=== PATIENT | female | born 1970 | race Caucasian/White ===

== ENCOUNTER 2016-11-24 08:09 | Emergency (ER) | payer MEDICAID ==
[~2016-11-24] VITALS: Ht 165.1 cm; Wt 50.0 kg
[~2016-11-24 08:09] MED LIST: NONE PER PT
[2016-11-24 08:12] VITALS: BP 112/76
[2016-11-24] MEDS ORDERED: KETOROLAC 30 MG/1 ML ONE (08:58)
[2016-11-24] MEDS ORDERED: KETOROLAC 30 MG/1 ML IM ONE (09:00)
== END 2016-11-24 10:25 | disposition home or self-care (01) ==
LOC: ED 10:01
DX: M77.8 Other enthesopathies, not elsewhere classified (principal); F17.210 Nicotine dependence, cigarettes, uncomplicated; X58.XXXA Exposure to other specified factors, initial encounter; Y93.89 Activity, other specified; Y92.89 Other specified places as the place of occurrence of the external cause; Y99.8 Other external cause status
CPT/HCPCS: 29125; 73110; 96372; 99284; J1885